=== PATIENT | female | born 1980 | race African-American/Black ===

== ENCOUNTER 2016-06-12 11:18 | Emergency (ER) | payer BC ==
[~2016-06-12] VITALS: Ht 170.2 cm; Wt 119.5 kg
[2016-06-12 11:33] VITALS: Ht 170.2 cm; Wt 119.5 kg
[2016-06-12 13:41] LABS: ADD UMIC NO; URINE BILIRUBIN (Dip) NEGATIVE (NEGATIVE); URINE BLOOD (Dip) NEGATIVE (NEGATIVE); URINE COLOR LT. YELLOW (YELLOW); URINE GLUCOSE (Dip) NEGATIVE (NEGATIVE); URINE KETONES (Dip) NEGATIVE (NEGATIVE); URINE LEUKOCYTE ESTERASE (Dip) NEGATIVE (NEGATIVE); URINE NITRITE (Dip) NEGATIVE (NEGATIVE); URINE TOTAL PROTEIN (Dip) NEGATIVE (NEGATIVE); URINE UROBILINOGEN (Dip) 0.2 E.U./dL (0.1-1.0)
[2016-06-12 13:43] LABS: BASOPHILS % 0.4 % (0.0-2.0); EOSINOPHILS # 0.1 10^3/ul (0.0-0.5); EOSINOPHILS % 1.1 % (0.0-7.0); HEMATOCRIT 28.9 % (37.0-47.0); HEMOGLOBIN 9.2 g/dl (12.0-16.0); LYMPHOCYTES # 1.4 10^3/ul (0.8-2.9); LYMPHOCYTES % 21.8 % (15.0-51.0); MEAN CORPUSCULAR HGB CONC 31.8 g/dl (32.0-37.0); MEAN CORPUSCULAR VOLUME 69.1 fl (82.0-101.0); MEAN PLATELET VOLUME 7.9 fl (7.4-10.4); MONOCYTE # 0.5 10^3/ul (0.3-0.9); MONOCYTES % 7.3 % (0.0-11.0); NEUTROPHIL # 4.4 10^3/ul (1.6-7.5); NEUTROPHILS % 69.4 % (39.0-77.0); PLATELET COUNT 351 10^3/UL (140-440); RED BLOOD COUNT 4.18 10^6/ul (4.20-5.40); RED CELL DISTRIBUTION WIDTH 16.6 % (11.5-14.5); UNCORRECTED WBC 6.3 10^3/ul (4.8-10.8); WHITE BLOOD COUNT 6.3 10^3/ul (4.8-10.8)
[2016-06-12 13:46] LABS: ALBUMIN 4.1 g/dl (3.3-4.9); CONDITION 1; LH ANALYZER COMMENTS 1
[2016-06-12 13:47] LABS: POTASSIUM 4.2 mmol/L (3.5-5.1)
[2016-06-12 13:49] LABS: ALBUMIN/GLOBULIN RATIO 1.24; BILIRUBIN,INDIRECT 0.1 mg/dl (0-1.1); BILIRUBIN,TOTAL 0.1 mg/dl (0.2-1.3); CREATININE 0.68 mg/dl (0.44-1.00); TOTAL PROTEIN 7.4 g/dl (6.1-8.1)
[2016-06-12 13:50] LABS: CALCIUM 8.9 mg/dl (8.4-10.2)
--- NOTE | 2016-06-12 13:56 | RADRPT ---
PROCEDURE: CT Abdomen and Pelvis without contrast. CLINICAL INDICATION: Abdominal pelvic pain. Left flank pain. TECHNIQUE: CT scan of the abdomen and pelvis without contrast was performed on a multidetector hig h-resolution CT scanner. The patient was scanned without intravenous contrast. Coronal and sagittal reformatted images were obtained from the axial source images. Images were reviewed on a high-resol [employer] PACS workstation. The total exam CTDI equals 23.75 mGy and the total exam DLP equals 1477.09 m Gy-cm. One or more of the following dose reduction techniques were used: - Automated exposure control. - Adjustment of the mA and/or kV according to patient size. - Use of iterative reconstruction technique. COMPARISON: None. FINDINGS: CT abdomen: The lung bases are clear. The heart size is normal, without pericardial thickening or effusion. Th e liver is normal in size and density without focal mass or intrahepatic biliary dilatation. The sp eduar is normal in size and homogeneous in density. The stomach is partially collapsed, but is gross ly unremarkable. The pancreas as visualized is normal. The gallbladder is remarkable for numerous gallstones. No pericholecystic inflammatory changes are appreciated. The biliary tree is unremarka ble and there is no evidence for biliary dilatation. The adrenal glands are symmetric and normal. The kidneys are symmetrically unremarkable as well. No renal calculus or obstructive uropathy or ma ss lesion is seen. The aorta is of normal caliber. There is no retroperitoneal lymphadenopathy. The solo hepatis reg ion is clear. The bowel and mesentery, as visualized, are equally unremarkable. CT pelvis: The small bowel loops situated within the pelvis are unremarkable. The appendix is normal. The pel keila organs are normal. The pelvic sidewalls and inguinal regions are clear. The sigmoid colon and rectum are unremarkable. No mass or adenopathy is seen. No free fluid is present. No acute inflamma tion is identified at this time. The surrounding osseous structures are unremarkable. No osteolytic or osteoblastic lesion is detect ed. IMPRESSION: 1. Cholelithiasis, without CT evidence for acute cholecystitis. 2. No mass, lymphadenopathy, or focal acute inflammatory process. 3. No urolithiasis or obstructive uropathy. RPTAT: HMJB .Sesar Singh MD, MD Date Time Electronically viewed and signed by .Sesar Singh MD, on 06/12/2016 13:56 .B/
[2016-06-12] MEDS ORDERED: HYDR-906 PO (14:15)
[2016-06-12] MEDS ORDERED: FAMO-18 PO (14:15)
--- NOTE | 2016-06-12 15:28 | ERD ---
DATE OF SERVICE: HISTORY OF PRESENT ILLNESS: The patient is 36-year-old female coming in complaining of left flank p ain for the last 2 days. Patient states she has had the symptoms for the last month, they come and go, but they appear to have gotten progressively worse. She does not know what causes them. She toure s had normal urination and bowel movement. Denies any chest pain or shortness of breath. No fevers . She is not taking medication that helps her symptoms. Last bowel movement was earlier today. PAST MEDICAL HISTORY: She has a history of anemia. ALLERGIES TO MEDICATIONS: DENIES. SURGICAL HISTORY: Denies. SOCIAL HISTORY: Denies. Last normal menstrual period was 06/03/2016. REVIEW OF SYSTEMS: A 12-point review of systems was done. Refer to HPI for positives, all other sy stems negative. PHYSICAL EXAMINATION VITAL SIGNS: Temperature is 98.2, pulse 102, blood pressure is 130/77, respiratory 18, O2 saturatio n 100% on room air. Pain intensity 9/10. GENERAL: The patient is well-appearing, well-nourished, no acute distress. HEART: Regular rate and rhythm. No murmurs, clicks, rubs or gallops. No S3 or S4. CHEST: Clear to auscultation bilaterally. There are no rales, wheezes or rhonchi. HEENT: Atraumatic. Conjunctivae are pink. Pupils equal, round, and reactive to light. There is no s cleral icterus. Tympanic membranes clear bilaterally. Oropharynx clear. No nystagmus or photophobia . ABDOMEN: Normoactive bowel sounds to auscultation. No organomegaly. Patient has mild tender ness to palpation over the left flank, but no CVA tenderness and no abdominal pain. EMERGENCY ROOM COURSE: The patient had blood work done in the ER. CBC showed anemia of 9.2, otherw ise within normal limits. CMP was within normal limits and lipase was normal. Patient's urine was negative. Patient had a CT abdomen and pelvis without contrast which showed: 1. Cholelithiasis without CT evidence of acute cholecystitis. 2. No mass, lymphadenopathy, or acute focal inflammatory process. 3. No urolithiasis or obstructive uropathy. DIAGNOSIS: Cholelithiasis. MEDICAL DECISION MAKING: I have low suspicion for choledocholithiasis, cholecystitis or cholangitis . Patient's blood work is within normal limits and the patient's CT scan is within normal limits. I have low suspicion for nephrolithiasis, urinary tract infection, or small-bowel obstruction. CT scan is within normal limits and is within normal limits. DISCHARGE: The patient is discharged stable. Patient given prescription for [place] and Pepcid and t old to follow up with primary care within 1 to 2 days for reevaluation. Patient told if symptoms pr ogress or worsen to return to the ER. All other questions answered at time of discharge. Discharge summary given at the time of departure. Patient understood and complied with plan. Dictated By: PATRICIA HIGUERA/JESSI Conf#: [id number] DID#: [id number]
== END 2016-06-12 14:29 | disposition home or self-care (01) ==
LOC: FTE 11:18
DX: K80.20 Calculus of gallbladder without cholecystitis without obstruction (principal); R10.2 Pelvic and perineal pain
CPT/HCPCS: 36415; 74176; 80053; 81003; 83690; 85025

== ENCOUNTER 2017-10-09 11:41 | Day surgery (SDC) | END 2017-10-10 08:33 | disposition home or self-care (01) ==

== ENCOUNTER → 2018-05-11 | Outpatient (CLI) | END | disposition home or self-care (01) ==

== ENCOUNTER 2019-01-23 02:11 | Emergency (ER) | payer BC, OTHER ==
[~2019-01-23] VITALS: Ht 170.2 cm; Wt 117.2 kg
[~2019-01-23 02:11] MED LIST: CYCL10TA7 PO; FAMO-96 PO; HYDR-4011 PO; IBUP800T48 PO; compazine
[2019-01-23 02:14] VITALS: Ht 170.2 cm; Wt 117.2 kg
[2019-01-23] MEDS ORDERED: KETOROLAC 30 MG INJ IM STA (04:00)
[2019-01-23 05:26] VITALS: BP 133/88; PULSE 89; RESP 18
== END 2019-01-23 05:26 | disposition home or self-care (01) ==
LOC: FTE 02:11
DX: S39.92XA Unspecified injury of lower back, initial encounter (principal); M54.40 Lumbago with sciatica, unspecified side; M41.9 Scoliosis, unspecified; X58.XXXA Exposure to other specified factors, initial encounter; Y92.89 Other specified places as the place of occurrence of the external cause
CPT/HCPCS: 72072; 72100; 81001; 81025; 96372; 99284; J1885